=== PATIENT | female | born 1980 | race Caucasian/White ===

== ENCOUNTER 2016-08-30 19:47 | Emergency (ER) | payer SELFPAY ==
[2016-08-30 20:49] LABS: Benzodiazepine Urine Screen None Detected (None Detect)
[2016-08-30 21:01] LABS: Hematocrit 40 % (35-47); Hemoglobin 13.3 g/dl (12.0-16.0); Mean Corpuscular HGB Conc 33 g/dl (31-36); Mean Corpuscular Hemoglobin 28 pg (27-31); Mean Corpuscular Volume 84 fL (80-97); Mean Platelet Volume 8 um3 (7.4-10.4); Red Cell Distribution Width 14 % (10.5-15); White Blood Count 12.6 10^3/ul (3.5-10.8)
[2016-08-30 21:01] LABS: Urine Bacteria 1+ (Absent); Urine Bilirubin Negative (Negative); Urine Glucose Negative (Negative); Urine Nitrite Negative (Negative)
[2016-08-30 21:17] LABS: ALT 10 U/L (7-52); AST 23 U/L (13-39); Albumin 4.5 g/dL (3.2-5.2); Alkaline Phosphatase 63 U/L (34-104); Anion Gap 4 mmol/L (2-11); BUN/Creatinine Ratio 13.2 (8-20); Blood Urea Nitrogen 10 mg/dL (6-24); CO2 Carbon Dioxide 27 mmol/L (22-32); Calcium 9.6 mg/dL (8.6-10.3); Chloride 104 mmol/L (101-111); EGFR African American 111.4 (>60); EGFR Non-African American 86.6 (>60); Globulin 3.3 g/dL (2-4); Glucose 111 mg/dL (70-100); Potassium 3.8 mmol/L (3.5-5.0); Sodium 135 mmol/L (133-145); Total Protein 7.8 g/dL (6.4-8.9)
--- NOTE | 2016-08-30 21:23 | ED ---
Sean James Matthew, scribed for Rodney Baig MD on 08/30/16 at 2005 . Psychiatric Complaint - HPI Summary HPI Summary: A 36 y/o female presents to the ED because she is hearing voices and believes there are demons in her house. She has been experiencing these symptoms since she moved into her new hours 3 years ago. She states that her and her kids hear voices and doors slamming. Per the nursing note, the patient stated that parents are filing for custody of the children and so she needs to be 'cleared' - History Of Current Complaint Chief Complaint: EDMentalHealth Time Seen by Provider: 08/30/16 19:58 Hx Obtained From: Patient Onset/Duration: Lasting Weeks, Still Present Timing: Constant Severity Initially: Mild Severity Currently: Mild Aggravating Factor(s): Nothing Alleviating Factor(s): Nothing Associated Signs And Symptoms: Positive: Hallucinating - Allergies/Home Medications Allergies/Adverse Reactions: Allergies Allergy/AdvReac Type Severity Reaction Status Date / Time Penicillins [PCN] Allergy Rash Verified 02/01/14 10:13 Home Medications: Home Medications NK [No Home Medications Reported] 08/30/16 [History Confirmed 08/30/16] PMH/Surg Hx/FS Hx/Imm Hx Psychiatric History: Denies: Hx Eating Disorder, Hx of Violent Episodes Against Others - Immunization History Date of Tetanus Vaccine: Unknown Infectious Disease History: No Infectious Disease History: Denies: Traveled Outside the US in Last 30 Days - Family History Family History: FHx of psychotic disorders. Fhx of schizophrenia. FHx of mood disorders. FHx of bipolar disorder. FHx of depression - Social History Alcohol Use: unable to determine Substance Use Type: Reports: None Smoking Status (MU): Never Smoked Tobacco Review of Systems Constitutional: Negative Eyes: Negative ENT: Negative Cardiovascular: Negative Respiratory: Negative Gastrointestinal: Negative Genitourinary: Negative Musculoskeletal: Negative Skin: Negative Neurological: Negative Psychological: Other - Hearing voices and door slams All Other Systems Reviewed And Are Negative: Yes Physical Exam Triage Information Reviewed: Yes Vital Signs On Initial Exam: Initial Vitals Temp Pulse Resp BP Pulse Ox 98.9 F 82 16 140/76 100 08/30/16 19:53 08/30/16 19:53 08/30/16 19:53 08/30/16 19:53 08/30/16 19:53 Vital Signs Reviewed: Yes Appearance: Positive: Well-Appearing, No Pain Distress - ANXIOUS Skin: Positive: Warm Head/Face: Positive: Normal Head/Face Inspection Eyes: Positive: ANDRZEJ ENT: Positive: Hearing grossly normal Neck: Positive: Supple Respiratory/Lung Sounds: Positive: Breath Sounds Present Cardiovascular: Positive: RRR Abdomen Description: Positive: Nontender, Soft Bowel Sounds: Positive: Present Musculoskeletal: Positive: Strength/ROM Intact Neurological: Positive: Sensory/Motor Intact Psychiatric: Positive: Affect/Mood Appropriate Diagnostics - Vital Signs Vital Signs Temp Pulse Resp BP Pulse Ox 08/30/16 19:56 98.2 F 82 16 140/76 100 08/30/16 19:53 98.9 F 82 16 140/76 100 - Laboratory Lab Results: Lab Results 08/30/16 08/30/16 08/30/16 Range/Units 20:27 20:27 20:50 WBC 12.6 H (3.5-10.8) 10^3/ul RBC 4.80 (4.0-5.4) 10^6/ul Hgb 13.3 (12.0-16.0) g/dl Hct 40 (35-47) % MCV 84 (80-97) fL MCH 28 (27-31) pg MCHC 33 (31-36) g/dl RDW 14 (10.5-15) % Plt Count 249 (150-450) 10^3/ul MPV 8 (7.4-10.4) um3 Neut % (Auto) 84.3 H (38-83) % Lymph % (Auto) 9.8 L (25-47) % [place] % (Auto) 4.8 (1-9) % Eos % (Auto) 0.2 (0-6) % Baso % (Auto) 0.9 (0-2) % Absolute Neuts (auto) 10.6 H (1.5-7.7) 10^3/ul Absolute Lymphs (auto) 1.2 (1.0-4.8) 10^3/ul Absolute Monos (auto) 0.6 (0-0.8) 10^3/ul Absolute Eos (auto) 0 (0-0.6) 10^3/ul Absolute Basos (auto) 0.1 (0-0.2) 10^3/ul Absolute Nucleated RBC 0 10^3/ul Nucleated RBC % 0 Sodium (133-145) mmol/L Potassium (3.5-5.0) mmol/L Chloride (101-111) mmol/L Carbon Dioxide (22-32) mmol/L Anion Gap (2-11) mmol/L BUN (6-24) mg/dL Creatinine (0.51-0.95) mg/dL Est GFR ( Amer) (>60) Est GFR (Non-Af Amer) (>60) BUN/Creatinine Ratio (8-20) Glucose (70-100) mg/dL Calcium (8.6-10.3) mg/dL Total Bilirubin (0.2-1.0) mg/dL AST (13-39) U/L ALT (7-52) U/L Alkaline Phosphatase (34-104) U/L Total Protein (6.4-8.9) g/dL Albumin (3.2-5.2) g/dL Globulin (2-4) g/dL Albumin/Globulin Ratio (1-3) TSH Urine Color Yellow Urine Appearance Cloudy Urine pH 7.0 (5-9) Ur Specific [place] 1.013 (1.010-1.030) Urine Protein Negative (Negative) Urine Ketones Negative (Negative) Urine Blood Negative (Negative) Urine Nitrate Negative (Negative) Urine Bilirubin Negative (Negative) Urine Urobilinogen Negative (Negative) Ur Leukocyte Esterase Trace H (Negative) Urine WBC (Auto) Trace(0-5/hpf) (Absent) Urine RBC (Auto) Trace(0-2/hpf) (Absent) Ur Squamous Epith Cells Present H (Absent) Urine Bacteria 1+ H (Absent) Urine Glucose Negative (Negative) Salicylates Urine Opiates Screen None detected (None Detect) Acetaminophen Ur Barbiturates Screen None detected (None Detect) Ur Phencyclidine Scrn None detected (None Detect) Ur Amphetamines Screen None detected (None Detect) U Benzodiazepines Scrn None detected (None Detect) Urine Cocaine Screen None detected (None Detect) U Cannabinoids Screen None detected (None Detect) Serum Alcohol 08/30/16 Range/Units 20:50 WBC (3.5-10.8) 10^3/ul RBC (4.0-5.4) 10^6/ul Hgb (12.0-16.0) g/dl Hct (35-47) % MCV (80-97) fL MCH (27-31) pg MCHC (31-36) g/dl RDW (10.5-15) % Plt Count (150-450) 10^3/ul MPV (7.4-10.4) um3 Neut % (Auto) (38-83) % Lymph % (Auto) (25-47) % [place] % (Auto) (1-9) % Eos % (Auto) (0-6) % Baso % (Auto) (0-2) % Absolute Neuts (auto) (1.5-7.7) 10^3/ul Absolute Lymphs (auto) (1.0-4.8) 10^3/ul Absolute Monos (auto) (0-0.8) 10^3/ul Absolute Eos (auto) (0-0.6) 10^3/ul Absolute Basos (auto) (0-0.2) 10^3/ul Absolute Nucleated RBC 10^3/ul Nucleated RBC % Sodium 135 (133-145) mmol/L Potassium 3.8 (3.5-5.0) mmol/L Chloride 104 (101-111) mmol/L Carbon Dioxide 27 (22-32) mmol/L Anion Gap 4 (2-11) mmol/L BUN 10 (6-24) mg/dL Creatinine 0.76 (0.51-0.95) mg/dL Est GFR ( Amer) 111.4 (>60) Est GFR (Non-Af Amer) 86.6 (>60) BUN/Creatinine Ratio 13.2 (8-20) Glucose 111 H (70-100) mg/dL Calcium 9.6 (8.6-10.3) mg/dL Total Bilirubin 0.40 (0.2-1.0) mg/dL AST 23 (13-39) U/L ALT 10 (7-52) U/L Alkaline Phosphatase 63 (34-104) U/L Total Protein 7.8 (6.4-8.9) g/dL Albumin 4.5 (3.2-5.2) g/dL Globulin 3.3 (2-4) g/dL Albumin/Globulin Ratio 1.4 (1-3) TSH Pending Urine Color Urine Appearance Urine pH (5-9) Ur Specific [place] (1.010-1.030) Urine Protein (Negative) Urine Ketones (Negative) Urine Blood (Negative) Urine Nitrate (Negative) Urine Bilirubin (Negative) Urine Urobilinogen (Negative) Ur Leukocyte Esterase (Negative) Urine WBC (Auto) (Absent) Urine RBC (Auto) (Absent) Ur Squamous Epith Cells (Absent) Urine Bacteria (Absent) Urine Glucose (Negative) Salicylates Pending Urine Opiates Screen (None Detect) Acetaminophen Pending Ur Barbiturates Screen (None Detect) Ur Phencyclidine Scrn (None Detect) Ur Amphetamines Screen (None Detect) U Benzodiazepines Scrn (None Detect) Urine Cocaine Screen (None Detect) U Cannabinoids Screen (None Detect) Serum Alcohol Pending Result Diagrams: 08/30/16 20:50 08/30/16 20:50 Lab Statement: Any lab studies that have been ordered have been reviewed, and results considered in the medical decision making process. Course/Dx - Differential Dx/Clinical Impression Provider Diagnosis: Psychosis - Physician Notifications Instructed by Provider To: Admit As Inpatient Discharge - Discharge Plan Condition: Fair Disposition: ADMITTED TO [facility] The documentation as recorded by the Sean sim Matthew accurately reflects the service I personally performed and the decisions made by , Rodney Baig MD.
[2016-08-30 21:42] LABS: TSH (Thyroid Stimulating Horm) 0.91 mcIU/mL (0.34-5.60)
[2016-08-30 21:48] LABS: Acetaminophen < 15 mcg/mL; Alcohol < 10 mg/dL (<10); Salicylate < 2.50 mg/dL (<30)
[2016-08-31] MEDS ORDERED: Haloperidol TAB* 5 MG PO PRN (00:42)
[2016-08-31] MEDS ORDERED: LORazepam TAB(*) 1 MG PO PRN (00:42)
[2016-08-31 19:34] VITALS: BP 130/78
== END 2016-08-31 19:29 | disposition short-term general hospital (02) ==
LOC: ED 19:47
DX: R44.3 Hallucinations, unspecified (principal); F29 Unspecified psychosis not due to a substance or known physiological condition
CPT/HCPCS: 36415; 80053; 80307; 80320; 80329; 81003; 81015; 84443; 84702; 85025; 87086; 93005; 99282; G0480

== ENCOUNTER 2019-07-12 17:00 | Emergency (ER) | payer BC ==
[2019-07-12] MEDS ORDERED: Ketorolac INJ* 30 MG/ML 1 ML VIAL IV PUSH ONE (17:25)
[2019-07-12] MEDS ORDERED: NS 0.9% 1000 ML** 1,000 ML IV ONE (17:25)
[2019-07-12] MEDS ORDERED: Morphine 4 MG/ML VIAL (1 ml) 4 MG/ML VIAL IV ONE ×2 (17:25→18:44)
[2019-07-12] MEDS ORDERED: Ondansetron INJ* 2 MG/ML VIAL IV ONE (17:26)
--- NOTE | 2019-07-12 17:29 | ED ---
Abdominal Pain/Female - HPI Summary HPI Summary: 39 year old F with hx kidney stones a couple years ago arriving via private car to [facility] complains of right sided abdominal pain and right flank pain with nausea/vomiting, diaphoresis, decreased appetite, hematuria x2 days started while she was showering. The pain was intermittent 2 days ago and is constant today. LNMP now. On oral contraception. Patient denies any fever, chills, erythema of eyes, sore throat, chest pain, shortness of breath, cough, dysuria, myalgia, edema, rash, dizziness. The patient rates the pain 9/10 in severity. Symptoms aggravated by nothing. Not aggravated by movement. Symptoms alleviated by nothing. Medications reviewed. Allergies noted. No alcohol. No tobacco use. Home Medications Medication Instructions Recorded Confirmed Type Beclomethasone 80 MCG MDI(NF) 2 puff INH BID 07/12/19 07/12/19 History [Qvar 80 MCG MDI(NF)] Beclomethasone NASAL SPRAY(NF) 1 spray BOTH NARES DAILY 07/12/19 07/12/19 History [Beconase AQ NASAL SPRAY(NF)] BuPROPion XL* [Bupropion XL*] 300 mg PO DAILY 07/12/19 07/12/19 History LORazepam TAB(*) [Ativan 0.5 MG 0.5 mg PO TID PRN MDD 1.5mg 07/12/19 07/12/19 History TAB (*)] LevoCETirizine TAB (NF) [Xyzal TAB 5 mg PO DAILY 07/12/19 07/12/19 History (NF)] Levonorgestrel-Ethin Estradiol 1 tab PO DAILY 07/12/19 07/12/19 History [Vienva-28 Tablet] Lurasidone(*) [Latuda] 20 mg PO DAILY 07/12/19 07/12/19 History - History of Current Complaint Chief Complaint: EDAbdPain Stated Complaint: ABD PAIN PER PT Time Seen by Provider: 07/12/19 17:20 Hx Obtained From: Patient Onset/Duration: Lasting Days - 2, Still Present Timing: Constant Severity Currently: Severe Pain Intensity: 9 Pain Scale Used: 0-10 Numeric Location: Discrete At: RUQ, Discrete At: RLQ, Flank - R Aggravating Factor(s): Nothing Alleviating Factor(s): Nothing Associated Signs and Symptoms: Positive: Negative - fever, chills, erythema of eyes, sore throat, chest pain, shortness of breath, cough, dysuria, myalgia, edema, rash, dizziness, Other: - nausea/vomiting, diaphoresis, decreased appetite, hematuria Allergies/Adverse Reactions: Allergies Allergy/AdvReac Type Severity Reaction Status Date / Time MS Penicillins [PCN] Allergy Rash Verified 02/01/14 10:13 Home Medications: Home Medications Beclomethasone 80 MCG MDI(NF) [Qvar 80 MCG MDI(NF)] 2 puff INH BID 07/12/19 [ History Confirmed 07/12/19] Beclomethasone NASAL SPRAY(NF) [Beconase AQ NASAL SPRAY(NF)] 1 spray BOTH NARES DAILY 07/12/19 [History Confirmed 07/12/19] BuPROPion XL* [Bupropion XL*] 300 mg PO DAILY 07/12/19 [History Confirmed ] LORazepam TAB(*) [Ativan 0.5 MG TAB (*)] 0.5 mg PO TID PRN MDD 1.5mg 07/12/19 [ History Confirmed 07/12/19] LevoCETirizine TAB (NF) [Xyzal TAB (NF)] 5 mg PO DAILY 07/12/19 [History Confirmed 07/12/19] Levonorgestrel-Ethin Estradiol [Vienva-28 Tablet] 1 tab PO DAILY 07/12/19 [ History Confirmed 07/12/19] Lurasidone(*) [Latuda] 20 mg PO DAILY 07/12/19 [History Confirmed 07/12/19] PMH/Surg Hx/FS Hx/Imm Hx History: Reports: Hx Kidney Stones Psychiatric History: Reports: Hx Anxiety, Hx Post Traumatic Stress Disorder - Surgical History Surgery Procedure, Year, and Place: ligament/tendon - Immunization History Date of Tetanus Vaccine: Unknown Infectious Disease History: No Infectious Disease History: Denies: Traveled Outside the US in Last 30 Days - Family History Family History: FHx of psychotic disorders. Fhx of schizophrenia. FHx of mood disorders. FHx of bipolar disorder. FHx of depression - Social History Alcohol Use: None Substance Use Type: Reports: None Hx Tobacco Use: No Smoking Status (MU): Never Smoked Tobacco Review of Systems Positive: Skin Diaphoresis. Negative: Fever, Chills Negative: Erythema Negative: Sore Throat Negative: Chest Pain Negative: Shortness Of Breath, Cough Positive: Abdominal Pain - R, Vomiting, Nausea, Other - decreased appetite Positive: flank pain - R, hematuria. Negative: dysuria Negative: Myalgia, Edema Negative: Rash Neurological/Mental Status: Negative - dizziness All Other Systems Reviewed And Are Negative: Yes Physical Exam - Summary Physical Exam Summary: Constitutional: Well-developed, Well-nourished, Alert. (-) Distressed Skin: Warm, Dry HENT: Normocephalic; Atraumatic Eyes: Conjunctiva normal Neck: Musculoskeletal ROM normal neck. (-) JVD, (-) Stridor, (-) Tracheal deviation Cardio: Rhythm regular, rate normal, Heart sounds normal; Intact distal pulses; The pedal pulses are 2+ and symmetric. Radial pulses are 2+ and symmetric. (-) Murmur Pulmonary/Chest wall: Effort normal. (-) Respiratory distress, (-) Wheezes, (-) Rales Abd: Soft, exquisite RUQ tenderness, mild right cVA tenderness, (-) Distension, (-) Guarding, (-) Rebound Musculoskeletal: (-) Edema Lymph: (-) Cervical adenopathy Neuro: Alert, Oriented x3 Psych: Mood and affect Normal Triage Information Reviewed: Yes Vital Signs On Initial Exam: Initial Vitals Temp Pulse Resp BP Pulse Ox 99 F 85 16 137/82 98 07/12/19 17:10 07/12/19 17:10 07/12/19 17:10 07/12/19 17:10 07/12/19 17:10 Vital Signs Reviewed: Yes Procedures - Sedation Patient Received Moderate/Deep Sedation with Procedure: No Diagnostics - Vital Signs Vital Signs Temp Pulse Resp BP Pulse Ox 07/12/19 17:10 99 F 85 16 137/82 98 - Laboratory Result Diagrams: 07/12/19 17:46 07/12/19 17:46 Lab Statement: Any lab studies that have been ordered have been reviewed, and results considered in the medical decision making process. - CT ABD/PEL CT Interpretation Completed By: Radiologist - IMPRESSION: Moderately obstructing 8 mm calculus distal third right ureter. ED physician has reviewed this imaging report. - Ultrasound GALLBLADDER Ultrasound Interpretation Completed By: Radiologist - IMPRESSION: 1. Right pelvocaliectasis suggesting an obstructing calculus. Recommend followup CT KUB. 2. Cholelithiasis. ED physician has reviewed this imaging report. Re-Evaluation - Re-Evaluation First Eval Re-Evaluation Time: 20:26 Change: Improved - she currently has no pain Second Eval Re-Evaluation Time: 21:49 Change: Worse - patient is vomiting. she has no pain. this is likely d/t pain medication. Abdominal Pain Fem Course/Dx - Course Course Of Treatment: 39 y/o F with hx kidney stones presents with right sided abdominal pain and right flank pain with nausea/vomiting, diaphoresis, decreased appetite, hematuria x2 days. Upon physical exam, the patient has exquisite RUQ tenderness, mild right cVA tenderness. Bloodwork results with no significant abnormalities except for WBC 11.4, MPV 7.0, absolute neuts 10.1, absolute lymphs 0.7, glucose 105, CRP 9.04. Urinalysis results with no significant abnormalities except for protein 1+, trace ketones, blood 3+, trace leukocyte esterase, RBC 3+. Ultrasound gallbladder shows, per radiologist: 1. Right pelvocaliectasis suggesting an obstructing calculus. Recommend followup CT KUB. 2. Cholel[address]iasis. [address] ABD/PEL shows, per radiologist: Moderately obstructing 8 mm calculus distal third right ureter. In the ED course, the patient was given Toradol, morphine, normal saline fluids, Zofran, Flomax, Percocet, Motrin. She has no pain after receiving these medications. Spoke with Dr. Beal, urology, who agrees to see patient in his office tomorrow. He will do procedure tomorrow if needed. He recommends clear liquid diet tonight. He recommends admission if she cannot tolerate pain. Patient will be discharged home with follow up from Dr. Beal tomorrow. She was given prescription for Percocet and Zofran. She was advised to take ibuprofen as needed. She was advised to stick to clear diet tonight. Patient was instructed to return to Emergency Department for new or worsening symptoms. Patient understands and is agreeable to this plan. - Diagnoses Provider Diagnoses: Ureteral stone - Provider Notifications Discussed Care Of Patient With: Wade Beal Time Discussed With Above Provider: 20:39 Instructed by Provider To: Other - Dr. Beal, urology, agrees to see patient in his office tomorrow. He will do procedure tomorrow if needed. He recommends clear liquid diet tonight. He recommends admission if she cannot tolerate pain. Discharge ED - Sign-Out/Discharge Documenting (check all that apply): Patient Departure - Discharge Plan Condition: Stable Disposition: HOME Patient Education Materials: Ureteral Stones (ED) Referrals: Wade Beal MD [Medical Doctor] - 07/13/19 Additional Instructions: Take ibuprofen as needed. Please follow up with Dr. Beal tomorrow 07/12/2019. You need to be seen by him no later than tomorrow. Stick to a clear liquid diet. Return to the Emergency Department for changing or worsening symptoms. - Attestation Statements Document Initiated by Scribe: Yes Documenting Scribe: Aurora Gutierrez Provider For Whom Anne is Documenting (Include Credential): Modesto Cardenas MD Scribe Attestation: I, Aurora Gutierrez, scribed for Modesto Cardenas MD on 07/12/19 at 1618. Status of Scribe Document: Ready
--- OUTSIDE RECORDS SUMMARY | 2019-07-12 17:49 | XMS REPORT ---
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 [address], [place] [id number] [facility] [address], [place] [id number] [facility] [address], OBG[place], [place] [id number] [place] [facility] [address] [address], Family history of [address] [place], malignant neoplasm [place] [id number] ovary Z80.41 and Low grade squamous intraepithelial lesion on cytologic smear of cervix (LGSIL) R87.612 [facility] [address] Nov, [place] [id number] [facility] [address] [place] Nov, Low grade squamous [address] [place], intraepithelial lesion [place] [id number] cytologic smear of cervix (LGSIL) R87.612 and Family history of malignant neoplasm of ovary Z80.41 [facility] [address] Oct, [place] [id number] [facility] [address] Oct, [place] [id number] [facility] [facility], Low grade squamous [address] [place] [address], intraepithelial lesion [place] [id number] cytologic smear of cervix (LGSIL) R87.612 and Family history of malignant neoplasm of ovary Z80.41 [facility] [address] Oct, [place], [place] [id number] IMMUNIZATIONS No Known Immunizations SOCIAL HISTORY Never Assessed REASON FOR REFERRAL FUNCTIONAL STATUS PLAN OF CARE VITAL SIGNS MEDICATIONS Unknown Medications PROCEDURES No Known procedures RESULTS No Results REASON FOR VISIT n/s for gardasil shot. Couldn't leave message - 03/23/2019 Insurance Providers [facility] Member Patient Patient Patient Patient Patient Subscriber Subscriber Subscriber Group Insurance Plan Plan Plan Plan ID Relationship Address Phone Name Date of ID Name Date of No Type Insurance Insurance Insurance Coverage to Subscriber Address Phone Name Dates [employer] [phone] [employer] self Rosemary [id number] Blue [id number] Blue [place] 8 Cross/Blue [place] Cross/Blue on Shield [id number] Shield MEDICAL (GENERAL) HISTORY Type Description Date Medical History bipolar Surgical History ligament reattached on 2017 Hospitalization History mental health 2017 Hospitalization History childbirth 2008 Hospitalization History childbirth 2009
--- OUTSIDE RECORDS SUMMARY | 2019-07-12 17:49 | XMS REPORT ---
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 156357989 intraepithelial lesion on cytologic smear of cervix (LGSIL) Problem Family history of Z80.41 Active [id number] malignant neoplasm of ovary ALLERGIES No Information ENCOUNTERS Encounter Location Date Diagnosis [address], [facility] [address] [place] [id number], [facility] [address] [place] [id number] [facility] [address], [place] [id number] [facility] [address], [place] [id number] [facility] [address], [place] [id number] [facility] [address] Mar, [place], [place] [phone] [facility] [address] Dec, OBG[place], [place] [id number] [place] [facility] [address] [facility] Dec, Family history of [address] [place], malignant [place]oplasm [place] [id number] ovary Z80.41 and Low grade squamous intraepithelial lesion on cytologic smear of cervix (LGSIL) R87.612 [facility] [address] Nov, [place] [id number] [facility] [address] [place] [address] [facility] Nov, Low grade squamous [address] [place], intraepithelial lesion [place] [id number] cytologic smear of cervix (LGSIL) R87.612 and Family history of malignant neoplasm of ovary Z80.41 [facility] [address] Oct, [place], [place] [id number] [facility] [address] Oct, [place] [id number] [facility] [address] [place] [address] [facility], Low grade squamous [address] [place], intraepithelial lesion [place] [id number] cytologic smear of cervix (LGSIL) R87.612 and Family history of malignant neoplasm of ovary Z80.41 [facility] [address] Oct, [place], [place] [id number] IMMUNIZATIONS No Known Immunizations SOCIAL HISTORY Never Assessed REASON FOR REFERRAL FUNCTIONAL STATUS PLAN OF CARE VITAL SIGNS MEDICATIONS Unknown Medications PROCEDURES No Known procedures RESULTS No Results REASON FOR VISIT Re:RE:Credit Account Insurance Providers [facility] Member Patient Patient Patient Patient Patient Subscriber Subscriber Subscriber Group Insurance Plan Plan Plan Plan ID Relationship Address Phone Name Date of ID Name Date of No Type Insurance Insurance Insurance Coverage to Subscriber Address Phone Name Dates [employer] [phone] [employer] self Rosemary [id number] Blue [id number] Blue [place] 8 Cross/Blue [place] Cross/Blue on Shield [id number] Shield MEDICAL (GENERAL) HISTORY Type Description Date Medical History bipolar Surgical History ligament reattached on finger 2017 Hospitalization History mental health 2017 Hospitalization History childbirth 2008 Hospitalization History childbirth 2009
--- OUTSIDE RECORDS SUMMARY | 2019-07-12 17:49 | XMS REPORT ---
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) Problem Family history of Z80.41 Active 544777909 malignant neoplasm of ovary ALLERGIES No Information ENCOUNTERS Encounter Location Date Diagnosis [address] Mar, [facility] [address] [place] [id number] Mar, [facility] [address] [place] [id number] [facility] [address] Mar, [place] [id number] [facility] [address] Mar, [place] [id number] [facility] [address] Mar, [place] [id number] [facility] [address] Mar, [place] [id number] [facility] [address] Dec, [place] [id number] [place] [facility] [address] [place] Dec, Family history of OBGYN [address] [place], [place] [id number] ovary Z80.41 and Low grade squamous intraepithelial lesion on cytologic smear of cervix (LGSIL) R87.612 [facility] [address] Nov, [place], [place] [phone] [place] [facility] [address] [place] [address] [place] Nov, Low grade squamous [address]BGYN [address] [place], intraepithelial [place] [id number] cytologic smear of cervix (LGSIL) R87.612 and Family history of malignant neoplasm of ovary Z80.41 [facility] [address] Oct, [place] [id number] [place] [facility] [address] Oct, [place], [place] [id number] [place] [facility] [address] [place] [address] [facility] Oct, Low grade squamous [address]BGYN [address] [place], intraepithelial [place] [id number] cytologic smear of cervix (LGSIL) R87.612 and Family history of malignant neoplasm of ovary Z80.41 [facility] Oct, [place], [place] [id number] IMMUNIZATIONS No Known Immunizations SOCIAL HISTORY Never Assessed REASON FOR REFERRAL FUNCTIONAL STATUS PLAN OF CARE VITAL SIGNS MEDICATIONS Unknown Medications PROCEDURES No Known procedures RESULTS No Results REASON FOR VISIT Credit Account Insurance Providers [facility] Member Patient Patient Patient Patient Patient Subscriber Subscriber Subscriber Group Insurance Plan Plan Plan Plan ID Relationship Address Phone Name Date of ID Name Date of No Type Insurance Insurance Insurance Coverage to Subscriber Address Phone Name Dates Excellus [phone] Excellus self Rosemary [id number] Blue [id number] Blue [place] 8 Cross/Blue Emely [place] Cross/Blue on Shield [id number] Shield MEDICAL (GENERAL) HISTORY Type Description Date Medical History bipolar Surgical History ligament reattached on finger 2017 Hospitalization History mental health 2017 Hospitalization History childbirth 2007 Hospitalization History childbirth 2008
--- OUTSIDE RECORDS SUMMARY | 2019-07-12 17:49 | XMS REPORT ---
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 399675593 intraepithelial lesion on cytologic smear of cervix (LGSIL) Problem Family history of Z80.41 Active 804021842 malignant neoplasm of ovary ALLERGIES No Information ENCOUNTERS Encounter Location Date Diagnosis [address] Mar, [facility] [address] [place] [id number] [facility] [address] [place] [address] Mar, [address] [place] [id number] [facility] [address] Mar, [place] [id number] [facility] [address] Mar, [place] [phone] [facility] [address] Mar, [place] [id number] [facility] [address] Mar, [place] [id number] [facility] [address] Dec, [place] [id number] [place] [facility] [address] [place] Dec, Family history of OBGYN Road [address] [place] [address], [place] [id number] ovary Z80.41 and Low grade squamous intraepithelial lesion on cytologic smear of cervix (LGSIL) R87.612 [facility] [address] 11 Nov, [place] [id number] [place] [facility] [address] [place] Nov, Low grade squamous OBGYN [address] [place], intraepithelial [place] [id number] cytologic smear of cervix (LGSIL) R87.612 and Family history of malignant neoplasm of ovary Z80.41 [facility] Oct, [place] [id number] [facility] Oct, [place] [id number] [place] [facility] [address] [facility] Oct, Low grade squamous [address] [place] [address], intraepithelial [place] [id number] cytologic smear of cervix (LGSIL) R87.612 and Family history of malignant neoplasm of ovary Z80.41 [facility] [address] Oct, [place] [id number] IMMUNIZATIONS No Known Immunizations SOCIAL HISTORY Never Assessed REASON FOR REFERRAL FUNCTIONAL STATUS PLAN OF CARE VITAL SIGNS MEDICATIONS Unknown Medications PROCEDURES No Known procedures RESULTS No Results REASON FOR VISIT Gardasil shot Insurance Providers [facility] Member Patient Patient Patient Patient Patient Subscriber Subscriber Subscriber Group Insurance Plan Plan Plan Plan ID Relationship Address Phone Name Date of ID Name Date of No Type Insurance Insurance Insurance Coverage to Subscriber Address Phone Name Dates Excellus [phone] Excellus self Rosemary [id number] Blue [id number] [address] Munoz 8 Cross/Blue Emely [place] Cross/Blue on Shield [id number] Shield MEDICAL (GENERAL) HISTORY Type Description Date Medical History bipolar Surgical History ligament reattached on finger 2018 Hospitalization History mental health 2017 Hospitalization History childbirth 2008 Hospitalization History childbirth 2008
--- OUTSIDE RECORDS SUMMARY | 2019-07-12 17:49 | XMS REPORT ---
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 297003474 intraepithelial lesion on cytologic smear of cervix (LGSIL) Problem Family history of Z80.41 Active 810519658 malignant neoplasm of ovary ALLERGIES No Information ENCOUNTERS Encounter Location Date Diagnosis [address] Mar, [facility] [address] [place] [id number] Mar, [facility] [address] [place] [id number] [facility] [address] Mar, [place] [id number] [facility] [address] Mar, [place] [id number] [facility] [address] Mar, [place] [id number] [facility] [address] Mar, [place] [id number] [facility] [address] Dec, [place] [id number] [place] [facility] [address] [place] Dec, Family history of OBGYN [address] [place], [place] [id number] ovary Z80.41 and Low grade squamous intraepithelial lesion on cytologic smear of cervix (LGSIL) R87.612 [facility] [address] Nov, [place], [place] [id number] [place] [facility] [address] [place] [address] [place] Nov, Low grade squamous OBGYN [address] [place], intraepithelial lesion [place] [id number] cytologic smear of cervix (LGSIL) R87.612 and Family history of malignant neoplasm of ovary Z80.41 [facility] [address] Oct, [place], [place] [phone] [facility] [address] Oct, [place] [id number] [place] [facility] [address] [place] [address] [facility] Oct, Low grade squamous OBGYN [address] [place], intraepithelial lesion [place] [id number] cytologic smear of cervix (LGSIL) R87.612 and Family history of malignant neoplasm of ovary Z80.41 [facility] [address] Oct, [place], [place] [id number] IMMUNIZATIONS No Known Immunizations SOCIAL HISTORY Never Assessed REASON FOR REFERRAL FUNCTIONAL STATUS PLAN OF CARE VITAL SIGNS MEDICATIONS Unknown Medications PROCEDURES No Known procedures RESULTS No Results REASON FOR VISIT CALL PT TODAY- Insurance Providers [facility] Member Patient Patient Patient Patient Patient Subscriber Subscriber Subscriber Group Insurance Plan Plan Plan Plan ID Relationship Address Phone Name Date of ID Name Date of No Type Insurance Insurance Insurance Coverage to Subscriber Address Phone Name Dates Excellus [phone] Excellus self Rosemary [id number] Blue [id number] 89 Blue Alexander 8 Cross/Blue [place] Cross/Blue on Shield [id number] Shield MEDICAL (GENERAL) HISTORY Type Description Date Medical History bipolar Surgical History ligament reattached on finger 2017 Hospitalization History mental health 2017 Hospitalization History childbirth 2008 Hospitalization History childbirth 2009
--- OUTSIDE RECORDS SUMMARY | 2019-07-12 17:49 | XMS REPORT ---
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 437266848 intraepithelial lesion on cytologic smear of cervix (LGSIL) Problem Family history of Z80.41 Active 225484925 malignant neoplasm of ovary ALLERGIES No Information ENCOUNTERS Encounter Location Date Diagnosis [address] Mar, [facility] [address] [place] [id number] Mar, [facility] [address] [place] [id number] [facility] [address] Mar, [place] [id number] [facility] [address] Mar, [place] [id number] [facility] [address] Mar, [place] [id number] [facility] [address] Mar, [place] [id number] [facility] [address] Dec, [place] [id number] [place] [facility] [address] [place] Dec, Family history of OBGYN [address] [place], [place] [id number] ovary Z80.41 and Low grade squamous intraepithelial lesion on cytologic smear of cervix (LGSIL) R87.612 [facility] [address] Nov, [place], [place] [id number] [facility] [address] [place] [address] [facility] Nov, Low grade squamous OBGYN [address] [place], intraepithelial lesion on [place] [id number] cytologic smear of cervix (LGSIL) R87.612 and Family history of malignant neoplasm of ovary Z80.41 [facility] [address] Oct, [place], [place] [id number] [facility] [address] Oct, [place] [id number] [facility] [address] [place] [address] [facility] Oct, Low grade squamous [address]BGYN [address] [place], intraepithelial lesion [place] [id number] cytologic smear of cervix (LGSIL) R87.612 and Family history of malignant neoplasm of ovary Z80.41 [facility] [address] Oct, [place], [place] [id number] IMMUNIZATIONS No Known Immunizations SOCIAL HISTORY Never Assessed REASON FOR REFERRAL FUNCTIONAL STATUS PLAN OF CARE VITAL SIGNS MEDICATIONS Unknown Medications PROCEDURES No Known procedures RESULTS No Results REASON FOR VISIT Gardasil injections Insurance Providers [facility] Health Member Patient Patient Patient Patient Patient Subscriber Subscriber Subscriber Group Insurance Plan Plan Plan Plan ID Relationship Address Phone Name Date of ID Name Date of No Type Insurance Insurance Insurance Coverage to Subscriber Address Phone Name Dates Excellus [phone] Excellus self Rosemary [id number] Blue [id number] 89 Blue Alexander 8 Cross/Blue [place] Cross/Blue on Shield [id number] Shield MEDICAL (GENERAL) HISTORY Type Description Date Medical History bipolar Surgical History ligament reattached on finger 2017 Hospitalization History mental health 2017 Hospitalization History childbirth 2008 Hospitalization History childbirth 2009
[2019-07-12 17:52] LABS: ABS Lymphocytes 0.7 10^3/ul (1.0-4.8); ABS Monocytes 0.5 10^3/ul (0-0.8); ABS Neutrophils 10.1 10^3/ul (1.5-7.7); Eosinophil % 0.4 %; Hematocrit 40 % (35-47); Hemoglobin 13.6 g/dL (12.0-16.0); Lymphocyte % 6.3 %; Mean Corpuscular HGB Conc 34 g/dL (31-36); Mean Corpuscular Hemoglobin 30 pg (27-31); Mean Corpuscular Volume 88 fL (80-97); Platelet Count 294 10^3/uL (150-450); Red Blood Count 4.53 10^6 /uL (3.70-4.87); Red Cell Distribution Width 14 % (10-15); White Blood Count 11.4 10^3/uL (3.5-10.8)
[2019-07-12 18:10] LABS: ALT 19 U/L (7-52); AST 24 U/L (13-39); Albumin 4.2 g/dL (3.2-5.2); Albumin/Globulin Ratio 1.2 (1-3); Alkaline Phosphatase 66 U/L (34-104); Anion Gap 8 mmol/L (2-11); BUN/Creatinine Ratio 13.2 (8-20); Blood Urea Nitrogen 12 mg/dL (6-24); C Reactive Protein 9.04 mg/L (<8.01); CO2 Carbon Dioxide 24 mmol/L (22-32); Calcium 9.2 mg/dL (8.6-10.3); Chloride 107 mmol/L (101-111); EGFR African American 83.7 (>60); EGFR Non-African American 69.2 (>60); Globulin 3.4 g/dL (2-4); Glucose 105 mg/dL (70-100); Potassium 3.9 mmol/L (3.5-5.0); Sodium 139 mmol/L (135-145); Total Protein 7.6 g/dL (6.4-8.9)
[2019-07-12 18:16] LABS: HCG Pregnancy < 0.60 mIU/mL
[2019-07-12 19:45] LABS: Urine Appearance Cloudy; Urine Bilirubin Negative (Negative); Urine Blood 3+ (Negative); Urine Color Yellow; Urine Glucose Negative (Negative); Urine Ketones Trace (Negative); Urine Nitrite Negative (Negative); Urine Protein 1+(30 mg/dL) (Negative); Urine Specific Gravity 1.024 (1.010-1.030); Urine Urobilinogen Negative (Negative)
[2019-07-12 19:49] LABS: Urine Bacteria Absent (Absent); Urine Red Blood Cell 3+(>10/hpf) (Absent); Urine Squamous Epithelial Cell Present (Absent); Urine White Blood Cell Trace(0-5/hpf) (Absent)
[2019-07-12] MEDS ORDERED: Ibuprofen TAB* 600 MG PO ONE (20:42)
[2019-07-12] MEDS ORDERED: Tamsulosin CAP* 0.4 MG PO ONE (20:42)
[2019-07-12] MEDS ORDERED: oxyCODONE/Acetamin 5/325 MG* TAB PO ONE (20:59)
[2019-07-12] MEDS ORDERED: Ondansetron ODT TAB* 4 MG SL ONE (21:51)
[2019-07-12] MEDS ORDERED: O ndansetron ODT 4MG 5TAB PRPK 4 MG PAK PO ONE (21:51)
[2019-07-12 22:04] VITALS: BP 114/68
== END 2019-07-12 22:03 | disposition home or self-care (01) ==
LOC: ED 17:00
DX: N20.1 Calculus of ureter (principal); R10.84 Generalized abdominal pain; F41.9 Anxiety disorder, unspecified; F43.10 Post-traumatic stress disorder, unspecified; Z88.0 Allergy status to penicillin; Z79.3 Long term (current) use of hormonal contraceptives; Z79.899 Other long term (current) drug therapy
CPT/HCPCS: 36415; 74176; 76705; 80053; 81003; 81015; 83605; 83690; 84702; 85025; 86140; 87086; 96374; 96375; 96376; 99283; A9270-GY; J1885; J2270; J2405

== ENCOUNTER → 2019-07-13 14:35 | Day surgery (SDC) | payer BC ==
[~2019-07-13 14:35] MED LIST: Buffered Lidocaine 1% SYRIN* 1 ML/SYRINGE INTRADERM ONE; Dexamethasone IV* 4 MG/ML 1 ML (4 MG) ONE; DiMENhydriNATE IV* 50 MG/ML VIAL ONE; Famotidine IV* 10 MG/ML 2 ML (20 mg) IV ONE; Gentamicin ADULT (*) 180 MG in NS 0.9% 100 ML* 100 ML IVPB ONE; Iohexol 180 (CONTRAST) 10 ML SDV IV ONE; Ketorolac INJ* 30 MG/ML 1 ML VIAL ONE; Lactated Ringers 1000 ML Bag* 1,000 ML IV SCH; Lidocaine 2% PF * 5 ML VIAL ONE; Midazolam* 1 MG/ML 5 ML VIAL (5 MG) ONE; Naloxone* 0.4 MG/ML 1 ML VIAL IV PRN; Ondansetron INJ* 2 MG/ML VIAL IV PRN; Ondansetron INJ* 2 MG/ML VIAL ONE; Propofol* 10 MG/ML 20 ML BTL ONE; fentaNYL* 50 MCG/ML 2 ML VIAL (100 MCG VIAL) IV PRN; fentaNYL* 50 MCG/ML 2 ML VIAL (100 MCG VIAL) ONE; oxyCODONE/Acetamin 5/325 MG* TAB PO PRN
--- NOTE | 2019-07-13 14:45 | HP ---
DATE OF ADMISSION/SURGERY: 07/13/2019. HISTORY OF PRESENT ILLNESS: Ms. Thompson is a 39-year-old white female who is admitted with recurrent episodes of right renal colic, 8 mm calculus of the distal right ureter for cystoscopy, right ureteroscopy, laser lithotripsy, and right ureteral stent insertion. Ms. Thompson had an episode of right renal colic about two years ago. At that time, she passed the stone spontaneously. The stone was not retrieved and was not analyzed. The patient presented to the emergency room yesterday with recurrent episodes of right renal colic. She did not have any fever or chills. Noncontrast CT of the abdomen and pelvis showed an 8 mm calculus in the distal right ureter associated with a moderate degree of right hydronephrosis. No other abnormalities were noted. The patient was managed with IV fluid and required several doses of narcotics for pain control. The pain improved and she was discharged home to be followed in our office. Since her discharge, her pain has been manageable, but has been recurring and she took two Percocet earlier today. The patient was evaluated in my office and had a follow-up renal ultrasound which continued to show moderate right hydroureteronephrosis. PAST MEDICAL HISTORY AND SYSTEM REVIEW: The patient has history of asthma and uses inhalers as needed. She has a history of bipolar disorder and anxiety and is maintained on Bupropion 300 mg daily, Lorazepam 0.5 mg three times per day as needed, Levocetirizine 5 mg daily. She is on Lurasidone (Latuda) at 20 mg daily. 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 She has not had any pelvic surgeries. PAST SURGICAL HISTORY: She had a tendon surgery. ALLERGIES: She reports being ALLERGIC TO PENICILLIN WHICH GIVES HER A RASH. FAMILY HISTORY: Relevant for psychotic disorders, schizophrenia, and depression. SOCIAL HISTORY: She does not drink alcohol. She denies any recreational drug use. She is a nonsmoker. PHYSICAL EXAMINATION GENERAL: She is moderately overweight, otherwise a healthy-looking white female who is in no acute pain at this time. VITAL SIGNS: Blood pressure 120/80, pulse 80. LUNGS: Clear. HEART: Regular and rhythmic, no murmurs. ABDOMEN: Soft, no tenderness. There is mild to moderate right CVA tenderness. EXTREMITIES: No edema. IMPRESSION: Recurrent episodes of right renal colic secondary to an 8 mm calculus in the distal right ureter without associated infection. PLAN: Cystoscopy, right ureteroscopy, laser lithotripsy, and right ureteral stent insertion. I discussed the above plans in detail with the patient and some of the potential complications, including possible migration of the stone into the kidney, small incidence of ureteral stricture and infection. All her questions were answered. (The patient had a test yesterday in the emergency room and it was negative. She has an IUD in place) [id number]/[facility] #: [id number] [facility]
[2019-07-13 18:24] VITALS: BP 115/77
--- NOTE | 2019-07-14 04:26 | OP ---
DATE OF OPERATION: 07/13/19 - [facility] DATE OF : 82 DATE OF : Wade Beal MD ANESTHESIOLOGIST: Dr. Clint Mondragon ANESTHESIA: General. PRE-OP DIAGNOSIS: Right ureteral calculus (8 mm) POST-OP DIAGNOSIS: Right ureteral calculus (8 mm) OPERATIVE PROCEDURE: 1. Cystoscopy. 2. Right ureteroscopy, laser lithotripsy, and extraction of stone fragments. 3. Right retrograde pyelography and the insertion of right ureteral stent (6- Malay) INDICATION OF PROCEDURE: Ms. Thompson is a 39-year-old white female who presented to the emergency room yesterday with symptoms of right renal colic. Noncontrast CT of the abdomen and pelvis showed an 8 mm obstructing calculus in the distal right ureter. The patient was managed conservatively, but she kept on having on and off episodes of right flank pain. Renal ultrasound done in the office showed moderate right hydronephrosis. Because of the above history and the size of the stone and after discussing the options of management, the above procedure was advised and accepted. PATHOLOGY: At cystoscopy, the bladder mucosa looked normal. There were no suspicious bladder lesions seen. No calculi or diverticula were noted. She did have a moderate size cystocele. Upon right ureteroscopy, there was an 8 mm calculus that had the gross appearance of a calcium oxalate stone. The calculus was impacted about 3 cm above the level of the orifice. There was a significant degree of dilatation and proximal tortuosity of the ureter. There was moderate right hydronephrosis. DESCRIPTION OF PROCEDURE: After successful general anesthesia, the patient was placed in the lithotomy position and was prepped and draped for a cystoscopy. Cystoscopy was performed. The bladder was inspected. The above findings were noted. Under fluoroscopy, a Hybrid flexible guidewire was introduced into the right orifice and positioned in the area of the proximal ureter or the renal pelvis. The cystoscope was removed keeping the guidewire in place. A size 6.5 semirigid tapered ureteroscope was then introduced inside the bladder. A flexible-tip basket was introduced through the port of the ureteroscope and its flexible tip was then introduced inside the right orifice allowing the atraumatic introduction of the ureteroscope inside the ureter. The calculus was identified. It was gently disimpacted. It was engaged in the basket to avoid its proximal migration. A size 550 micron laser fiber was then introduced through into the other port of the ureteroscope and the stone was broken using laser energy. A large fragment of the stone escaped out of the basket and migrated all the way up into the proximal ureter. The ureteroscope was introduced all the way up into the proximal ureter. The stone fragment was identified, engaged with the basket and brought down into the distal ureter and additional lasering was performed until all the fragments were about 3 mm in size or smaller. They were then extracted with the basket and sent for stone analysis. A final ureteroscopy showed no residual stone fragments and intact ureteral wall. Right retrograde pyelography was performed demonstrating the dilated ureter and the proximal tortuosity. The tortuosity was then bypassed with the guidewire and was straightened. Size 6-Malay stent was then fed on top of the guidewire and positioned with the proximal end coiling in the renal pelvis and distal end coiling inside the bladder. There was good drainage of contrast from the kidney and no extravasation. The patient tolerated the procedure well and left the operating room in good condition. The plan is to see the patient in the office in about 10 days. The stent will then be removed. [id number]/[facility] #: [id number] [facility]
== END | disposition home or self-care (01) ==
LOC: OR 14:35
PROVIDERS: ATTEND Urology
DX: N13.2 Hydronephrosis with renal and ureteral calculous obstruction (principal); J45.909 Unspecified asthma, uncomplicated; F31.9 Bipolar disorder, unspecified; F41.9 Anxiety disorder, unspecified
CPT/HCPCS: 74420; 81025; 82365; 88300; C1876; J1100; J1240; J1580; J1885; J2250; J2405; J2704; J3010